=== PATIENT | male | born 1955 | race Caucasian/White ===

== ENCOUNTER → 2022-03-23 | Outpatient (CLI) | payer MEDICARE | LOC: US 09:46 | PROVIDERS: ATTEND Urology | DX: R31.21 Asymptomatic microscopic hematuria (principal) | CPT/HCPCS: 74018; 76770 ==

== ENCOUNTER → 2025-04-10 | Day surgery (SDC) | payer OTHER ==
[2025-04-04 11:52] LABS: BASOPHILS % 0.4 % (0.0-1.0); EOSINOPHILS % 6.7 % (0.0-6.0); LYMPHOCYTES % 35.5 % (18.0-39.1); MONOCYTES % 8.1 % (4.4-11.3); NEUTROPHILS % 49.1 % (38.7-80.0); RED CELL DISTRIBUTION WIDTH 13.2 % (11.7-14.4)
[2025-04-04 12:14] LABS: EST GLOMERULAR FILTRATION RATE 96.0 ML/MIN (>=60)
[~2025-04-10] MED LIST: FENTANYL CITRATE/PF 100MCG/2 ML INJ ONE; FLOMAX0.4 MG PO; GLYCOPYRROLATE INJ 0.2 MG/ML VIAL ONE; LIDOCAINE HCL 2% LOCAL INJ 5 ML SDV VIAL INJ ONE; MIDAZOLAM HCL 2 MG/2 ML VIAL ONE; PROPOFOL IV EMULSION 10 MG/ML 20 ML VIAL ONE
[2025-04-10] MEDS: LACTATED RINGER'S 1,000 ML ONE (06:01)
[2025-04-10] MEDS: TETRACAINE HCL 0.5% OPTH SOLN 4 ML BTL ONE (06:02)
[2025-04-10] MEDS: PHENYLEPHRINE HCL 2 ML DROPS ONE (06:02)
[2025-04-10] MEDS: GATIFLOXACIN(OPTH) 5 ML LIQD ONE (06:02)
[2025-04-10] MEDS: CYCLOPENTOLATE HCL 2% OPTH SOLN 2 ML BTL OP ONE (06:02)
[2025-04-10 08:16] VITALS: TEMP 97
[2025-04-10 08:30] VITALS: BP 117/77; PULSE 74; RESP 16; O2SAT 97
== END | disposition home or self-care (01) ==
LOC: OR 05:37
PROVIDERS: ATTEND Ophthalmology
DX: H25.11 Age-related nuclear cataract, right eye (principal); Z96.1 Presence of intraocular lens; Z98.42 Cataract extraction status, left eye; N40.0 Benign prostatic hyperplasia without lower urinary tract symptoms; Z87.891 Personal history of nicotine dependence; Z01.812 Encounter for preprocedural laboratory examination; Z79.899 Other long term (current) drug therapy
CPT/HCPCS: 36415; 66984; 80048; 85025; J2003; J2250; J2704; J3010; J7121; V2632